=== PATIENT | female | born 1965 | race Caucasian/White ===

== ENCOUNTER 2016-11-11 22:59 | Emergency (ER) | payer MEDICARE, OTHER ==
[~2016-11-11] VITALS: Ht 167.6 cm; Wt 97.7 kg
[~2016-11-11 22:59] MED LIST: CHLO.12%30 SSP; HYDR-3535 PO; IBUP800T23 PO; LISI-363 PO; PENI500T PO
[2016-11-11 23:03] VITALS: BP 141/70; PULSE 109; RESP 16; TEMP 97.7; O2SAT 98
[2016-11-11] MEDS ORDERED: HYDR-3535 PO (23:31)
[2016-11-11] MEDS ORDERED: LISI-515 PO (23:31)
[2016-11-11] MEDS ORDERED: [UNRECOGNIZED DRUG - OTHER] (23:31)
[2016-11-11] MEDS ORDERED: ALPR.5 PO (23:31)
[2016-11-11] MEDS ORDERED: BACT800T5 PO (23:56)
--- NOTE | 2016-11-11 23:58 | PD ---
HPI Chief Complaint: Bite or Sting Time Seen by Provider: 23:51 Travel History International Travel<30 days: No Contact w/Intl Traveler<30days: No Traveled to known affect area: No History of Present Illness HPI The patient is a 51-year-old female that noted an abscess on her left buttocks for approximately one week. Her last tetanus shot she believes is over 10 years ago. The patient is not diabetic. She denies any fever. 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) Psychiatric: Yes Reproductive: No Respiratory: No Immunizations Current: Yes Migraines: Yes Tetanus Vaccination: Unknown Influenza Vaccination: No ?: Not : 4 Para: 4 Past Surgical History Section: Yes (X1) Cholecystectomy: Yes Hysterectomy: No Other Surgery: Yes ( AND GALLBLADDER) Social History Alcohol Use: Yes (OCC.) Tobacco Use: Yes (1PPD) Substance Use: No Allergies-Medications (Allergen,Severity, Reaction): Coded Allergies: codeine (Unverified Allergy, Intermediate, RASH, 11/11/16) Reported Meds & Prescriptions Reported Meds & Active Scripts Active Bactrim DS (Sulfamethoxazole-Trimethoprim) 800-160 Mg Tab 1 Tab PO BID Reported [BC Powder] Lortab (Hydrocodone-Acetaminophen) 10-325 Mg Tab 1 Tab PO Q6H PRN Xanax (Alprazolam) 0.5 Mg Tab 0.5 Mg PO Q6H PRN Lisinopril 20 Mg Tab 20 Mg PO DAILY Physical Exam Narrative GENERAL: Well-nourished, well-developed patient in slight apparent distress with her left buttocks discomfort. Her vital signs show heart rate of 109 but are otherwise normal. SKIN: Focused skin assessment warm/dry. There is a 2 cm diameter abscess surrounded by 8 cm cellulitic area on the left buttocks. It is exquisitely tender and draining slightly. HEAD: Normocephalic. EYES: No scleral icterus. No injection or drainage. NECK: Supple, trachea midline. No JVD or lymphadenopathy. CARDIOVASCULAR: Regular rate and rhythm without murmurs, gallops, or rubs. RESPIRATORY: Breath sounds equal bilaterally. No accessory muscle use. GASTROINTESTINAL: Abdomen soft, non-tender, nondistended. MUSCULOSKELETAL: No cyanosis, or edema. BACK: Nontender without obvious deformity. No CVA tenderness. Data Data Last Documented VS Vital Signs Date Time Temp Pulse Resp B/P (MAP) Pulse Ox O2 Delivery O2 Flow Rate FiO2 11/11/16 23:03 97.7 109 16 141/70 (93) 98 Orders Orders Tetanus/Diphtheria Tox Adult (Tetanus/Di (11/12/16 00:00) Ondansetron Inj (Zofran Inj) (11/12/16 00:00) Hydromorphone Pf Inj (Dilaudid Pf Inj) (11/12/16 00:00) [facility] Medical Decision Making Medical Screen Exam Complete: Yes Emergency Medical Condition: Yes Medical Record Reviewed: Yes Differential Diagnosis Abscess, cellulitis, anorectal fistula-highly unlikely Narrative Course The patient has an abscess with surrounding cellulitic area on the left buttocks. She will be given Septra DS to take for 10 days. She will need to sit in a tub twice daily of warm water. She is to return to her primary care physician or the emergency department if she has any problems. The abscess has been drained. Procedures Procedure Narrative Skin was prepped with Betadine. Under sterile technique, the abscess was incised and considerable pus was recovered. Loculations and pus were cleaned out with peroxide moistened Q-tips. The patient tolerated the procedure fairly well. Diagnosis Primary Impression: History of incision and drainage Additional Impression: Left buttock abscess Additional Instructions: As we discussed, soak the abscess twice daily by sitting in a tub of warm water. If you have problems follow-up with your primary care physician or to the emergency department for reevaluation. The antibiotic is taken twice daily for 10 days. Med/Other Pt SpecificInfo: Prescription(s) given Scripts Sulfamethoxazole-Trimethoprim (Bactrim DS) 800-160 Mg Tab 1 TAB PO BID for Infection, #20 TAB 0 Refills Prov: Dayron Livingston MD 11/11/16 Disposition: 01 DISCHARGE HOME Condition: Stable Dayron Livingston MD Nov 11, 2016 23:58
[2016-11-12] MEDS ORDERED: TETANUS/DIPHTHERIA TOXOID ADULT 0.5 ML VIAL IM ONE
[2016-11-12] MEDS ORDERED: HYDROmorphone HCL PF 1 MG/ML VIAL IM ONE
[2016-11-12] MEDS ORDERED: ONDANSETRON HCL 4 MG/2 ML VIAL IM ONE
[2016-11-12] MEDS ORDERED: SULFAMETHOXAZOLE-TRIMETHOPRIM DS 800-160 MG TAB PO ONE (00:15)
== END 2016-11-12 00:38 | disposition home or self-care (01) ==
LOC: PHED 22:59
DX: L02.31 Cutaneous abscess of buttock (principal); I10 Essential (primary) hypertension
CPT/HCPCS: 10060; 90471; 90714; 96372; 96374; 99284; J1170; J2405